=== PATIENT | male | born 1955 | race Caucasian/White ===

== ENCOUNTER 2023-12-18 10:55 | Emergency (ER) | payer OTHER ==
[~2023-12-18] VITALS: Ht 177.8 cm; Wt 86.1 kg
[2023-12-18] VITALS (12 sets, daily range): BP systolic 144–177; BP diastolic 77–100
[2023-12-18 15:04] LABS: BASO% 0.5 % (0-3); EOS% 2.3 % (0-8); HEMATOCRIT 45.1 % (39.0-50.0); HEMOGLOBIN 14.7 g/dl (14.0-18.0); IMMATURE GRANULOCYTES 0.3 % (0.0-5.0); LYMPH% 10.7 % (15-41); MEAN CORPUSCULAR HGB CONC 32.6 g/dL CAL (32.0-36.0); MONO% 6.8 % (2-13); NEUT# 5.26 thou/uL (1.82-7.42); NEUT% 79.4 % (42-76); RED BLOOD COUNT 4.9 mill/uL (4.70-6.10); RED CELL DISTRI WIDTH 11.7 % (11.5-15.5)
[2023-12-18 15:22] LABS: ALBUMIN 4.5 g/dL (3.2-5.0); ALKALINE PHOSPHATASE 101 u/l (38-126); AMYLASE 48 u/l (30-110); ANION GAP 11 (6-22 (CALC)); BILIRUBIN, TOTAL 0.6 mg/dL (0.2-1.3); BUN 22 mg/dL (8-23); BUN/CREATININE RATIO 21 (12-20 (CALC)); CARBON DIOXIDE 28 mmol/l (22-30); CHLORIDE 106 mmol/l (95-108); GFR FOR AFR.AMER. > 60 ML/MIN (>=60 (CALC)); GFR OTHER RACES > 60 ML/MIN (>=60 (CALC)); POTASSIUM 4.5 mmol/l (3.5-5.1); SGOT/AST 33 u/l (19-48); SODIUM 141 mmol/l (137-146); TOTAL PROTEIN 7.5 g/dL (6.3-8.2)
== END 2023-12-18 19:32 | disposition home or self-care (01) | DRG 607 ==
LOC: ED 10:55
PROVIDERS: Emergency Medicine
DX: R22.1 Localized swelling, mass and lump, neck (principal)
CPT/HCPCS: Q9967